=== PATIENT | male | born 1970 | race Asian ===

== ENCOUNTER 2020-04-28 23:07 | Inpatient (IN) | payer OTHER ==
[2020-04-29] MEDS ORDERED: Diltiazem 125 MG/25 ML ONE (00:10)
--- NOTE | 2020-04-29 00:31 | PDOC.HHP ---
Hospitalist HPI palpitations History of Present Illness: A 50-year-old male patient with a history of atrial fibrillation, atrial flutter status post ablation who presents with palpitations and dizziness. Patient used to be very obese now very athletic and fit. Of note patient has had previous atrial flutter for which he had a successfully ablated. He also had a subsequent atrial fibrillation which spontaneously resolved. He has not been on anticoagulation as his building code inspector think he does not meet criteria Patient notes that he woke up this morning with some fluttering in his chest however was generally stable. He went to work.Fluttering continued and he became lightheaded and dizzy. 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 fib with RVR. He denied any associated chest pain, heart mild brief cough but no shortness of breath. He denies any fevers diarrhea nausea vomiting polyuria or frequency. Heart rate in the 120s. CBC coags BMP were generally unremarkable besides glucose at 03/24/2009 slightly elevated creatinine kinase at 210. Urinalysis and toxicology panel negative his blood pressure in current was he received Cardizem and 1 therapeutic dose of Lovenox 1 mg/kg. After discussion with his physician they agree that he comes here for further evaluation by cardiology. On presentation here his BP was 153/79, pulse 65, respirate 17, saturating 98% on room air., Repeat troponin here was 0.016. Diltiazem drip was continued while he was here with consideration of RVR Allergies/Adverse Reactions: Allergy/AdvReac Type Severity Reaction Status Date / Time No Known Allergies Allergy Verified 08/04/13 13:35 Home Medications: Medication Instructions Recorded Confirmed Type Multivitamin With Minerals 1 tablet PO DAILY 08/04/13 04/29/20 History [Multiple Vitamin] Cyclobenzaprine [Flexeril] 1 tab PO PRN PRN 04/29/20 04/29/20 History Ibuprofen 1 cap PO PRN PRN 04/29/20 04/29/20 History Past History: Past medical history: Atrial fibrillation, atrial flutter, obesity Past surgical history: Ablation for atrial flutter, right eye foreign body removal, cataract surgery Family history: None of significance Social history: Occasional drinks alcohol. No smoking or illicit drug use history Hospitalist HPI ROS Constitutional: denies: fever, chills, sweats, weakness Eyes: denies: pain, vision change, conjunctivae inflammation Cardiovascular: reports: palpitations. denies: chest pain, orthopnea, paroxysmal noc. dyspnea Gastrointestinal: denies: nausea, vomiting, abdominal pain, diarrhea Genitourinary: denies: dysuria, incontinence Musculoskeletal: denies: neck pain, shoulder pain, arm pain Neurological: denies: weakness, numbness, incoordination All other systems reviewed; all pertinent +/- noted in HPI/Subj Hospitalist Exam General Appearance: awake alert General - other findings: No acute Eye: PERRL, anicteric sclera ENT: normocephalic atraumatic Neck: supple, symmetric, no JVD Heart: no murmur, no gallops, irregular Respiratory: CTAB, no wheezes, no rales, no ronchi Gastrointestinal: soft, non-tender, non-distended, normal bowel sounds Extremities: no cyanosis, no clubbing, no edema Neurological: cranial nerve grossly intact, no weakness, no focal deficits Musculoskeletal: normal tone, normal strength, no muscle wasting Psychiatric: normal affect, normal behavior, A&O x 3 Hospitalist H&P A/P Plan: This is a 50-year-old male patient with a history of atrial flutter status post ablation and atrial fibrillation who presents with recurrent atrial fibrillation of unclear etiology. Atrial fibrillation with RVR Unclear cause This has been recurrent RVR aborted with diltiazem drip. will hold for now We will monitor in telemetry [id number]: 0will not continue anticoagulation. He received 1 mg/kg milligrams Cardiology consult in a.m. Hyperglycemia This is mild at 128 We will monitor Consider A1c in a.m. Elevated creatinine kinase Creatinine kinase mildly with activity Patient is around We will monitor this VT prophylaxisLovenox CODE STATUSfull code
[2020-04-29 01:45] LABS: Troponin I 0.016 ng/mL (< 0.028)
[2020-04-29 04:50] LABS: #Eosinphils 0.1 thou/uL (0.0-0.7); #Lymphocytes 1.6 thou/uL (1.20-3.40); #Monocytes 0.7 thou/uL (0.11-0.59); #Neutrophils 3.6 thou/uL (1.40-6.50); %Basophils 0.6 % (0.0-1.0); %Eosinophils 2.3 % (0.0-10.0); %Lymphocytes 26.8 % (21.0-51.0); %Monocytes 11.4 % (0.0-10.0); %Neutrophils 58.9 % (42.0-75.0); Hemoglobin 15.1 g/dL (14.0-18.0); Mean Corpuscular HGB CONC 32.9 g/dL (32.0-36.0); Mean Corpuscular Hemoglobin 31.9 pg (27.0-31.0); Mean Corpuscular Volume 96.9 fL (78.0-98.0); Mean Platelet Volume 6.7 fL (7.4-10.4); Platelet Count 254 thou/uL (130-400); RBC Distribution Width 11.6 % (11.5-14.5); Red Blood Cell (RBC) Count 4.73 mill/uL (4.70-6.10); White Blood Cell (WBC) Count 6.1 thou/uL (4.8-10.8)
[2020-04-29 05:09] LABS: Anion Gap 14 mmol/L (10-20); BUN (Urea Nitrogen) 17 mg/dL (8.9-20.6); Calc. Creatinine Clearance 0 mL/min (70-130); Calcium 8.6 mg/dL (7.8-10.44); Carbon Dioxide 25 mmol/L (22-29); Chloride 103 mmol/L (98-107); Glucose 91 mg/dL (70-105); Potassium 3.8 mmol/L (3.5-5.1); Sodium 138 mmol/L (136-145)
[2020-04-29 08:11] VITALS: BP 108/66; TEMP 97.7
[2020-04-29] MEDS ORDERED: Enoxaparin Sodium 40 MG/0.4 ML SYRINGE SC SCH ×2 (09:00→21:00)
--- NOTE | 2020-04-29 09:17 | PDOC.DS.DS ---
Provider Date of Admission: 04/29/20 01:45 Date of Discharge: 04/29/20 Admitting Provider: Nikko Wong MD Consultations: Cardiology Primary Care Physician: Uli Edmonds MD Course Hospital Course: Patient is a pleasant 42 years ago gentleman who has significant past medical history of paroxysmal atrial fib/flutter with status post ablation, who presented to the ED with complaint of palpitations and dizziness. He was found in atrial fib with RVR from outside facility. He was started on Lovenox, and subsequently transfer here for cardiology evaluation. Patient was seen by Dr. Robison. Given the fact that patient had a [id number] score of 0, he recommend a full dose aspirin. Patient has been converted into normal sinus rhythm. No further medication is recommended at this time. Patient is cleared to discharge from cardiology. Patient follow-up with EP/PCP as outpatient. Patient was advised to return to ED if his symptom recurs or worsening. Resuscitation Status: 04/29/20 00:22 Resuscitation Status Routine Resuscitation Status: FULL: Full Resuscitation Lab Results: 04/29/20 03:55 04/29/20 03:55 Abnormal Lab Results - Last 48 hrs 04/29/20 03:55: MCH 31.9 H, MPV 6.7 L, Monocytes % 11.4 H, Monocytes # 0.7 H Vitals: Vital Signs (12 hours) Temp Pulse Resp BP Pulse Ox 04/29/20 08:11 97.7 F 69 16 108/66 98 04/29/20 04:22 97.9 F 79 18 103/67 04/29/20 01:59 98.0 F 78 18 110/55 L 99 Weight Weight 5.482 oz Physical Exam: The patient was seen and examined on the day of discharge. General Appearance: NAD Eye: PERRL ENT: normocephalic atraumatic Neck: supple Respiratory: CTAB, no wheezes Cardiovascular: RRR, no murmur Gastrointestinal: soft Extremities: no cyanosis, no clubbing Skin: normal turgor Neurological: cranial nerve grossly intact, normal sensation to touch Musculoskeletal: normal tone PSYCH: normal affect, normal behavior, A&O x 3 Problem Time Spent in discharge related activities (mins): 30 (1) Paroxysmal A-fib Code(s): I48.0 - PAROXYSMAL ATRIAL FIBRILLATION Status: Acute Plan Prescriptions: Aspirin 325 mg PO DAILY #90 tablet Famotidine [Pepcid] 20 mg PO DAILY #90 tablet Home Medications: Medication Instructions Recorded Confirmed Type Multivitamin With Minerals 1 tablet PO DAILY 08/04/13 04/29/20 History [Multiple Vitamin] Aspirin 325 mg PO DAILY #90 tablet 04/29/20 Rx Cyclobenzaprine [Flexeril] 1 tab PO PRN PRN 04/29/20 04/29/20 History Famotidine [Pepcid] 20 mg PO DAILY #90 tablet 04/29/20 Rx Allergies: No Known Allergies Allergy (Verified 08/04/13 13:35) Activity:: Activity as Tolerated Nourishment:: Heart Healthy Diet Referrals: Tyson Robison MD [Active] - 2-3 Weeks (Please call the office and schedule a follow up appointment) Uli Edmonds MD [Primary Care Provider] - 7 Days (Please call the office and schedule a follow up appointment ) Andrei Nieves MD [Nuclear Medical Tech] - 10 Days (Dr. Robison wants you to follow up with an Electrophysiology physician. Please call the office and schedule a follow up appointment) Disposition: HOME Quality CORE MEASURES:: N/A
[2020-04-29 09:32] LABS: SARS-CoV-2 PCR by NAA Not Detected (NotDetected)
== END 2020-04-29 12:27 | disposition home or self-care (01) | DRG 310 ==
LOC: ERS 23:07 → 2NO 04-29 01:45
PROVIDERS: ADMIT Student in an Organized Health Care Education/Training Program; ATTEND Family Medicine
DX: I48.0 Paroxysmal atrial fibrillation (principal); R73.9 Hyperglycemia, unspecified; Z79.890 Hormone replacement therapy; Z98.41 Cataract extraction status, right eye; Z79.899 Other long term (current) drug therapy; Z79.51 Long term (current) use of inhaled steroids; Z20.822 Contact with and (suspected) exposure to COVID-19
CPT/HCPCS: 36415; 80048; 84484; 85025; 87635; 93005; U0003; U0005

== ENCOUNTER 2023-04-09 08:37 | Outpatient (CLI) | payer BC | END 2023-04-09 08:38 | disposition home or self-care (01) | LOC: SCSRAD 08:37 | PROVIDERS: ATTEND Family Medicine | DX: M79.672 Pain in left foot (principal); M25.872 Other specified joint disorders, left ankle and foot ==

== ENCOUNTER 2024-11-17 15:04 | Outpatient (CLI) | payer BC | END 2024-11-17 15:05 | disposition home or self-care (01) | LOC: SCSRAD 15:04 | DX: S29.9XXA Unspecified injury of thorax, initial encounter (principal); S22.31XA Fracture of one rib, right side, initial encounter for closed fracture ==